=== PATIENT | female | born 1970 | race Caucasian/White ===

== ENCOUNTER → 2016-11-10 | Outpatient (CLI) | payer BC ==
--- NOTE | 2016-11-10 09:41 | MR ---
EXAMINATION TYPE: MR thoracic spine wo con DATE OF EXAM: 11/10/2016 9:35 AM COMPARISON: NONE HISTORY: Pain in tsp Multiplanar MultiSpin echo imaging of the thoracic spine was performed. Localizer T2 images demonstrates increased signal within the cervical spinal cord Disc spaces: No evidence for herniation protrusion or central stenosis. No significant degenerative c hanges appreciated. Spinal canal: No evidence for canal stenosis. No intrinsic or extrinsic lesion. Thoracic spinal cord: Thoracic spinal cord is of normal caliber and signal. Paraspinal soft tissues: No evidence for paraspinal mass. No destructive lesions seen. Vertebral segments: No evidence for fracture or bony lesion. IMPRESSION: 1. No significant abnormality of the thoracic spine. 2. Sagittal T2 localizer data set that demonstrates increased signal within the cervical spinal cord for which further evaluation is recommended.
== END | disposition home or self-care (01) ==
LOC: RADMRIMAIN 08:54
PROVIDERS: ATTEND Physical Medicine & Rehabilitation
DX: M54.6 Pain in thoracic spine (principal)
CPT/HCPCS: 72146

== ENCOUNTER → 2016-11-16 | Outpatient (CLI) | payer BC ==
--- NOTE | 2016-11-16 13:35 | US ---
EXAMINATION TYPE: US axilla extremity RT DATE OF EXAM: 11/16/2016 12:10 PM COMPARISON: NONE CLINICAL HISTORY: R22.2 Swelling, mass and lump trunk. 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 Scanning of area of concern in the right axilla shows 2 benign-appearing lymph nodes in the deeper ti ssue. No worrisome solid or cystic mass or abnormal fluid collection is seen on images saved. IMPRESSION: As above. Unremarkable study.
== END | disposition home or self-care (01) ==
LOC: RADUSWWP 11:57
PROVIDERS: ATTEND Internal Medicine
DX: R22.2 Localized swelling, mass and lump, trunk (principal)

== ENCOUNTER → 2016-11-19 | Outpatient (CLI) | payer BC ==
--- NOTE | 2016-11-19 13:59 | MR ---
EXAMINATION TYPE: MR cervical spine wo/w con DATE OF EXAM: 11/19/2016 9:17 AM COMPARISON: MR thoracic spine November 2016 HISTORY: Neck pain TECHNIQUE: Multiplanar, multisequence images of the cervical spine were acquired utilizing 15 mL intravenous Mul tiHance gadolinium contrast. Diffusion weighted imaging was performed. C2-C3: No evidence for degenerative disc disease. No disc bulge/herniation or protrusion. No Canal stenosis. Foramina are patent bilaterally. C3-C4: No evidence for degenerative disc disease. No disc bulge/herniation or protrusion. No Canal stenosis. Foramina are patent bilaterally. C4-C5: There is a right posterior paracentral disc herniation causing some contact the anterior cervi kirstie cord. No significant central stenosis or foraminal encroachment. C5-C6: Small posterior broad-based disc bulge causes minimal anterior mass effect on the thecal sac. Some left-sided foraminal encroachment is present, no significant central stenosis. C6-C7: Small central posterior disc herniation may contact the anterior cervical cord. There is some mild left-sided foraminal encroachment. C7-T1: No evidence for degenerative disc disease. No disc bulge/herniation or protrusion. No Canal stenosis. Foramina are patent bilaterally. Cervical segments are intact. There is normal alignment. Cervical spinal cord is of normal signal. Craniovertebral junction relationships are within normal limits. No significant abnormal enhancemen t. IMPRESSION: Multilevel disc herniation, disc degenerative changes as described, foraminal encroachment.
== END | disposition home or self-care (01) ==
LOC: RADMRIMAIN 08:30
PROVIDERS: ATTEND Internal Medicine
DX: M50.221 Other cervical disc displacement at C4-C5 level (principal); M47.812 Spondylosis without myelopathy or radiculopathy, cervical region
CPT/HCPCS: 72156; A9577

== ENCOUNTER → 2017-06-27 | Outpatient (CLI) | payer BC ==
--- NOTE | 2017-06-27 23:13 | MR ---
EXAMINATION TYPE: MR brain and iac wo/w con DATE OF EXAM: 06/27/2017 COMPARISON: NONE HISTORY: Tinnitus, left ear, Headache TECHNIQUE: Multiplanar, multisequence images of the brain and brainstem is performed without and with IV contras t, utilizing 6.5 mL intravenous Gadavist . Additional imaging of the internal auditory canal is perfo rmed. FINDINGS: Diffusion weighted images demonstrate no evidence of a recent infarct or other diffusion ab normality. There is no worrisome extra-axial fluid collection. The ventricular system and cisternal spaces are normal in size and appearance. The brain volume is age appropriate. There are few scatte red foci of T2 hyperintensity seen throughout the white matter bilaterally. Approximately 5-8 small l esions all measuring 3 mm or smaller in size are identified. They are nonspecific in appearance and d istribution. Midline structures demonstrate normal morphology. The craniocervical junction appears within normal limits. Post contrast images demonstrate no abnormal enhancement. The dural venous sinuses appear pa tent. The visualized sinuses are clear and the globes are intact. No suspicious fluid signal seen in mastoid air cells bilaterally. Vestibulocochlear complexes are sym metric and felt within normal limits. No suspicious enhancing cerebellopontine angle mass is identifi ed. IMPRESSION: Minimal nonspecific white matter changes otherwise unremarkable study. No significant fin ding is seen to account for patient's symptoms of left-sided tinnitus.
== END | disposition home or self-care (01) ==
LOC: RADMRIMAIN 21:44
PROVIDERS: ATTEND Internal Medicine
DX: R90.82 White matter disease, unspecified (principal)
CPT/HCPCS: 70553; A9581

== ENCOUNTER 2017-12-12 21:07 | Inpatient (IN) | payer BC ==
[2017-12-12] MEDS ORDERED: RX INFO: IV CONTRAST WAS GIVEN 1 EACH MISC MISCELLANE PRN (21:49)
[2017-12-12] MEDS ORDERED: MORPHINE SULFATE 4 MG/ML SYRINGE IV STA (21:49)
[2017-12-12] MEDS ORDERED: SODIUM CHLORIDE 0.9% 2,000 ML IV STA (21:49)
[2017-12-12] MEDS ORDERED: SODIUM CHLORIDE 0.9% 1,000 ML IV STA (21:49)
[2017-12-12] MEDS ORDERED: ONDANSETRON 4 MG/2 ML VIAL IVP STA (21:49)
[2017-12-12 22:14] LABS: Basophils # (A) 0.1 k/uL (0-0.2); Basophils % (A) 1 %; Eosinophils # (A) 0.1 k/uL (0-0.7); Eosinophils % (A) 1 %; HCT 40.3 % (34.0-46.0); HGB 13.2 gm/dL (11.4-16.0); Lymphocytes # (A) 2.3 k/uL (1.0-4.8); Lymphocytes % (A) 32 %; MCH 29.5 pg (25.0-35.0); MCHC 32.8 g/dL (31.0-37.0); MCV 89.9 fL (80.0-100.0); Mean Platelet Volume 8.7; Monocytes # (A) 0.4 k/uL (0-1.0); Monocytes % (A) 6 %; Neutrophils # (A) 4.3 k/uL (1.3-7.7); Neutrophils % (A) 59 %; Platelet Count 239 k/uL (150-450); RBC 4.48 m/uL (3.80-5.40); RDW 13.4 % (11.5-15.5); WBC 7.3 k/uL (3.8-10.6)
[2017-12-12 22:25] LABS: Anion Gap 14 mmol/L; Blood Urea Nitrogen 18 mg/dL (7-17); Carbon Dioxide 21 mmol/L (22-30); Chloride 108 mmol/L (98-107); Glucose 94 mg/dL (74-99); Potassium 3.6 mmol/L (3.5-5.1); Sodium 143 mmol/L (137-145)
[2017-12-12 22:26] LABS: ALT 32 U/L (9-52); AST 23 U/L (14-36); Albumin 4.8 g/dL (3.5-5.0); Alkaline Phosphatase 112 U/L (38-126); Amylase 282 U/L (30-110); Calcium 10.1 mg/dL (8.4-10.2); Lipase 1677 U/L (23-300); Total Bilirubin 0.4 mg/dL (0.2-1.3); Total Protein 7.5 g/dL (6.3-8.2)
[2017-12-12 22:35] LABS: Amorphous Sediment,Urine Moderate /hpf; Appearance,Urine Cloudy (Clear); Bilirubin,Urine Negative (Negative); Blood,Urine Negative (Negative); Color,Urine Yellow; Glucose,Urine (UA) Negative (Negative); Ketones,Urine Negative (Negative); Leukocyte Esterase,Urine Negative (Negative); Mucus,Urine Rare /hpf; Nitrite,Urine Negative (Negative); Protein,Urine Negative (Negative); Specific Gravity,Urine 1.016 (1.001-1.035); Squamous Epithelial Cell,Urine 1 /hpf (0-4); Urobilinogen,Urine <2.0 mg/dL (<2.0); WBC,Urine 3 /hpf (0-5)
--- NOTE | 2017-12-12 22:41 | CT ---
EXAMINATION TYPE: CT abdomen pelvis w con DATE OF EXAM: 12/12/2017 COMPARISON: NONE HISTORY: Right upper quadrant pain and nausea x 2 1/[address] DLP: 423.4 mGycm Automated exposure control for dose reduction was used. TECHNIQUE: Helical acquisition of images was performed from the lung bases through the pelvis. CONTRAST: Performed without Oral Contrast and with IV Contrast, patient injected with 100 mL of Omnipaque 300. FINDINGS: Lung bases are clear. There is no pleural effusion. Heart size is normal. There is no pericardial eff usion. Liver spleen pancreas appear normal. Bile ducts are not dilated. Gallbladder appears normal. There is no adrenal mass. Kidneys show satisfactory contrast opacification. There is no hydronephrosis. There is no retroperito shruthi adenopathy. There is no ascites. Bladder distends smoothly. There is no sign of a pelvic mass. U reters are not dilated. I see no intestinal wall thickening. There are no dilated loops. Appendix is not seen. There is no si gn of appendicitis. I see no bony destructive process. IMPRESSION: NEGATIVE CT SCAN OF THE ABDOMEN AND PELVIS. I DO NOT SEE A CAUSE FOR RIGHT UPPER QUADRANT PAIN.
--- NOTE | 2017-12-12 23:20 | ED ---
Abdominal Pain HPI - General Chief Complaint: Abdominal Pain Stated Complaint: abdominal pain Time Seen by Provider: 12/12/17 21:43 Source: patient Mode of arrival: ambulatory Limitations: no limitations - History of Present Illness Initial Comments: 7 years old female came from another doctor's office stating that she has a blockade was noticed on her x-ray complaining about excruciating abdominal pain pain is located in the right upper quadrant area and pain is 10 over 10 and also pain she bends forward. She denies any headaches no neck stiffness no chest pain no shortness of breath does have a severe abdominal pain is located in the right upper quadrant area and in the epigastric area denies any frequency urgency dysuria denies any history of gallstones denies any alcohol use denies any history of pancreatitis she is a status post history hysterectomy , no frequency urgency dysuria no symptoms of TIA or CVA - Related Data Home Medications Medication Instructions Recorded Confirmed Calcium Carbonate [Calcium] 600 mg PO BID 12/12/17 12/12/17 Cholecalciferol [Vitamin D3] 1,000 unit PO DAILY 12/12/17 12/12/17 Estradiol 0.05MG/24Hr Biwkptch 1 patch TRANSDERM SUWE 12/12/17 12/12/17 [Vivelle-Dot 0.05 MG] Ibuprofen [Motrin] 800 mg PO TID PRN 12/12/17 12/12/17 Lactobacillus Acidophilus 1 tab PO BID 12/12/17 12/12/17 [Acidophilus] Loratadine [Claritin] 10 mg PO DAILY 12/12/17 12/12/17 Mirabegron [Myrbetriq] 25 mg PO DAILY PRN 12/12/17 12/12/17 Montelukast [Singulair] 20 mg PO HS 12/12/17 12/12/17 Rizatriptan Benzoate [Maxalt] 5 mg PO DAILY PRN 12/12/17 12/12/17 Topiramate [Topamax] 100 mg PO BID 12/12/17 12/12/17 Zolpidem [Ambien] 10 mg PO HS 12/12/17 12/12/17 buPROPion HCL [Wellbutrin XL] 300 mg PO DAILY 12/12/17 12/12/17 clonazePAM [KlonoPIN] 1 mg PO TID PRN 12/12/17 12/12/17 metFORMIN HCL ER [Glucophage Xr] 500 mg PO BID 12/12/17 12/12/17 Allergies Allergy/AdvReac Type Severity Reaction Status Date / Time Cephalosporins Allergy Unknown Verified 12/12/17 21:23 escitalopram [From Lexapro] Allergy Unknown Verified 12/12/17 21:23 Penicillins Allergy Unknown Verified 12/12/17 21:23 solifenacin [From Vesicare] Allergy Unknown Verified 12/12/17 22:36 steroids Allergy Unknown Uncoded 12/12/17 21:23 Review of Systems ROS Statement: Those systems with pertinent positive or pertinent negative responses have been documented in the HPI. ROS Other: All systems not noted in ROS Statement are negative. Past Medical History Past Medical History: No Reported History History of Any Multi-Drug Resistant Organisms: None Reported Past Surgical History: No Surgical Hx Reported Past Psychological History: No Psychological Hx Reported Smoking Status: Never smoker Past Alcohol Use History: None Reported, Occasional Past Drug Use History: None Reported General Exam - General Exam Comments Initial Comments: General: The patient is awake and alert, in via distress pain is 10 over 10 Skin: Skin is warm and dry and no rashes or lesions are noted. Eye: Pupils are equal, round and reactive to light, extra-ocular movements are intact; there is normal conjunctiva bilaterally. Ears, nose, mouth and throat: There are moist mucous membranes and no oral lesions. Neck: The neck is supple, there is no tenderness no signs of meningitis Cardiovascular: There is a regular rate and rhythm. No murmur, rub or gallop is appreciated. Respiratory: To auscultation bilateral, no wheezing no rhonchi no distress respiratory felipe noticed Gastrointestinal: Very tender over the right upper quadrant area right paraumbilical area and epigastric area and slightly tender over left upper quadrant area positive bowel sounds no guarding no rebounds Back: There is no tenderness to palpation in the midline. There is no obvious deformity. Musculoskeletal: Normal ROM, no tenderness, There is no pedal edema. There is no calf tenderness or swelling. No cords were appreciated. Neurological: CN II-XII intact, Cranial nerves III through XII are intact. There are no obvious motor or sensory deficits. Coordination appears grossly intact. Speech is normal. Psychiatric: Cooperative, appropriate mood & affect, normal judgment. Limitations: no limitations Course Vital Signs 12/12/17 12/12/17 21:18 23:14 Temperature 97.5 F L Pulse Rate 87 98 Respiratory 18 18 Rate Blood Pressure 140/78 110/58 O2 Sat by Pulse 97 98 Oximetry She is reassessed at term 11:15 PM, CT abdomen is unremarkable amylase lipase are both elevated apart from that and CBC and compressive metabolic panel are unremarkable she be admitted to Dr. Angulo service, findings were discussed with the patient and the family didn't want agreeable to that plan Medical Decision Making - Lab Data Result diagrams: 12/12/17 22:04 12/12/17 22:04 Lab Results 12/12/17 12/12/17 12/12/17 Range/Units 22:04 22:04 22:04 WBC 7.3 (3.8-10.6) k/uL RBC 4.48 (3.80-5.40) m/uL Hgb 13.2 (11.4-16.0) gm/dL Hct 40.3 (34.0-46.0) % MCV 89.9 (80.0-100.0) fL MCH 29.5 (25.0-35.0) pg MCHC 32.8 (31.0-37.0) g/dL RDW 13.4 (11.5-15.5) % Plt Count 239 (150-450) k/uL Neutrophils % 59 % Lymphocytes % 32 % Monocytes % 6 % Eosinophils % 1 % Basophils % 1 % Neutrophils # 4.3 (1.3-7.7) k/uL Lymphocytes # 2.3 (1.0-4.8) k/uL Monocytes # 0.4 (0-1.0) k/uL Eosinophils # 0.1 (0-0.7) k/uL Basophils # 0.1 (0-0.2) k/uL Sodium 143 (137-145) mmol/L Potassium 3.6 (3.5-5.1) mmol/L Chloride 108 H (98-107) mmol/L Carbon Dioxide 21 L (22-30) mmol/L Anion Gap 14 mmol/L BUN 18 H (7-17) mg/dL Creatinine 0.80 (0.52-1.04) mg/dL Est GFR (CKD-EPI)AfAm >90 (>60 ml/min/1.73 sqM) Est GFR (CKD-EPI)NonAf 89 (>60 ml/min/1.73 sqM) Glucose 94 (74-99) mg/dL Plasma Lactic Acid Ronan 1.2 (0.7-2.0) mmol/L Calcium 10.1 (8.4-10.2) mg/dL Total Bilirubin 0.4 (0.2-1.3) mg/dL AST 23 (14-36) U/L ALT 32 (9-52) U/L Alkaline Phosphatase 112 (38-126) U/L Troponin I (0.000-0.034) ng/mL C-Reactive Protein 7.0 (<10.0) mg/L Total Protein 7.5 (6.3-8.2) g/dL Albumin 4.8 (3.5-5.0) g/dL Amylase 282 H (30-110) U/L Lipase 1677 H (23-300) U/L Urine Color Urine Appearance (Clear) Urine pH (5.0-8.0) Ur Specific [place] (1.001-1.035) Urine Protein (Negative) Urine Glucose (UA) (Negative) Urine Ketones (Negative) Urine Blood (Negative) Urine Nitrite (Negative) Urine Bilirubin (Negative) Urine Urobilinogen (<2.0) mg/dL Ur Leukocyte Esterase (Negative) Urine WBC (0-5) /hpf Ur Squamous Epith Cells (0-4) /hpf Amorphous Sediment (None) /hpf Urine Mucus (None) /hpf Urine HCG, Qual (Not Detectd) 12/12/17 12/12/17 12/12/17 Range/Units 22:04 22:15 22:15 WBC (3.8-10.6) k/uL RBC (3.80-5.40) m/uL Hgb (11.4-16.0) gm/dL Hct (34.0-46.0) % MCV (80.0-100.0) fL MCH (25.0-35.0) pg MCHC (31.0-37.0) g/dL RDW (11.5-15.5) % Plt Count (150-450) k/uL Neutrophils % % Lymphocytes % % Monocytes % % Eosinophils % % Basophils % % Neutrophils # (1.3-7.7) k/uL Lymphocytes # (1.0-4.8) k/uL Monocytes # (0-1.0) k/uL Eosinophils # (0-0.7) k/uL Basophils # (0-0.2) k/uL Sodium (137-145) mmol/L Potassium (3.5-5.1) mmol/L Chloride (98-107) mmol/L Carbon Dioxide (22-30) mmol/L Anion Gap mmol/L BUN (7-17) mg/dL Creatinine (0.52-1.04) mg/dL Est GFR (CKD-EPI)AfAm (>60 ml/min/1.73 sqM) Est GFR (CKD-EPI)NonAf (>60 ml/min/1.73 sqM) Glucose (74-99) mg/dL Plasma Lactic Acid Ronan (0.7-2.0) mmol/L Calcium (8.4-10.2) mg/dL Total Bilirubin (0.2-1.3) mg/dL AST (14-36) U/L ALT (9-52) U/L Alkaline Phosphatase (38-126) U/L Troponin I <0.012 (0.000-0.034) ng/mL C-Reactive Protein (<10.0) mg/L Total Protein (6.3-8.2) g/dL Albumin (3.5-5.0) g/dL Amylase (30-110) U/L Lipase (23-300) U/L Urine Color Yellow Urine Appearance Cloudy H (Clear) Urine pH 8.0 (5.0-8.0) Ur Specific [place] 1.016 (1.001-1.035) Urine Protein Negative (Negative) Urine Glucose (UA) Negative (Negative) Urine Ketones Negative (Negative) Urine Blood Negative (Negative) Urine Nitrite Negative (Negative) Urine Bilirubin Negative (Negative) Urine Urobilinogen <2.0 (<2.0) mg/dL Ur Leukocyte Esterase Negative (Negative) Urine WBC 3 (0-5) /hpf Ur Squamous Epith Cells 1 (0-4) /hpf Amorphous Sediment Moderate H (None) /hpf Urine Mucus Rare H (None) /hpf Urine HCG, Qual Not Detected (Not Detectd) Disposition Clinical Impression: Pancreatitis, Abdominal pain Disposition: ADMITTED IP TO THIS [facility] Condition: Good Referrals: Domenico Campa MD [Primary Care Provider] - 1-2 days
[2017-12-12] MEDS ORDERED: ONDANSETRON 4 MG/2 ML VIAL IVP PRN (23:23)
[2017-12-12] MEDS ORDERED: NALOXONE 0.4 MG/ML 1 ML VIAL IV PRN (23:23)
[2017-12-12] MEDS ORDERED: IBUPROFEN 800 MG TAB PO PRN (23:29)
[2017-12-12] MEDS ORDERED: OXYBUTYNIN XL 5 MG TAB.ER.24 PO PRN (23:29)
[2017-12-12] MEDS ORDERED: clonazePAM 1 MG TAB PO PRN (23:29)
[2017-12-13] MEDS: MORPHINE SULFATE 4 MG/ML SYRINGE IV PRN ×5 (01:17→19:40)
[2017-12-13 06:11] LABS: Basophils % (A) 1 %; Eosinophils # (A) 0.1 k/uL (0-0.7); Eosinophils % (A) 2 %; HCT 39.5 % (34.0-46.0); HGB 12.9 gm/dL (11.4-16.0); Lymphocytes # (A) 2.2 k/uL (1.0-4.8); Lymphocytes % (A) 39 %; MCHC 32.6 g/dL (31.0-37.0); MCV 92.1 fL (80.0-100.0); Mean Platelet Volume 8.5; Monocytes # (A) 0.4 k/uL (0-1.0); Monocytes % (A) 7 %; Neutrophils # (A) 2.8 k/uL (1.3-7.7); Neutrophils % (A) 50 %; Platelet Count 208 k/uL (150-450); RBC 4.29 m/uL (3.80-5.40); RDW 13.1 % (11.5-15.5); WBC 5.7 k/uL (3.8-10.6)
[2017-12-13 06:23] LABS: ALT 31 U/L (9-52); AST 19 U/L (14-36); Albumin 3.9 g/dL (3.5-5.0); Alkaline Phosphatase 89 U/L (38-126); Amylase 172 U/L (30-110); Anion Gap 10 mmol/L; Blood Urea Nitrogen 12 mg/dL (7-17); Calcium 8.5 mg/dL (8.4-10.2); Carbon Dioxide 25 mmol/L (22-30); Chloride 111 mmol/L (98-107); Glucose 89 mg/dL (74-99); Lipase 786 U/L (23-300); Sodium 146 mmol/L (137-145); Total Bilirubin 0.4 mg/dL (0.2-1.3); Total Protein 6.2 g/dL (6.3-8.2)
[2017-12-13] MEDS ORDERED: CALCIUM CARBONATE 500 MG CHEWABLE PO SCH (09:00)
[2017-12-13] MEDS ORDERED: NON-FORMULARY DRUG (Metformin Hcl Er 500 MG) PO SCH (09:00)
[2017-12-13] MEDS ORDERED: CHOLECALCIFEROL 1,000 UNIT TAB PO SCH (09:00)
[2017-12-13] MEDS: buPROPion XL 300 MG TAB.ER.24H PO SCH (10:13)
[2017-12-13] MEDS: TOPIRAMATE 100 MG TAB PO SCH ×2 (10:14→20:39)
[2017-12-13] MEDS: LORATADINE 10 MG TAB PO SCH (10:14)
[2017-12-13] MEDS: LACTOBACILLUS ACIDOPH & BULGAR 1 EACH PACKET PO SCH (10:15)
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
[2017-12-13] MEDS: ENOXAPARIN 40 MG/0.4 ML SYRINGE SQ SCH (17:37)
[2017-12-13] MEDS: PANTOPRAZOLE 40 MG TABLET PO SCH (17:37)
[2017-12-13] MEDS: MONTELUKAST 10 MG TAB PO SCH (20:38)
[2017-12-13] MEDS: ZOLPIDEM 10 MG TAB PO SCH (20:38)
--- NOTE | 2017-12-13 20:40 | P.GSCN ---
History of Present Illness Consult date: 12/13/17 Reason for Consult: Acute pancreatitis History of present illness: Patient hospitalized with a 2 to three-week history of increasing abdominal pain and nausea. Starting yesterday the pain became much more severe. Pain is in the epigastric region and right upper quadrant. Appetite is diminished. Some loose stools. No change in the color of her skin urine or stool. No fevers. She states this all began almost simultaneous to her sinus infection. She was treated with Bactrim at that time. Denies alcohol use. No prior history of pancreatitis. No history of ulcers. No history of known gallstones. Pain is persisting this evening. CAT scan was performed which showed some very subtle inflammatory changes around the mid body of the pancreas. No gallbladder disease is seen. Her amylase and lipase are elevated. They are improved today. Her liver enzymes were not elevated. 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 History of Any Multi-Drug Resistant Organisms: None Reported Past Surgical History: Ear Surgery, Hysterectomy Additional Past Surgical History / Comment(s): Several abdominal surgeries d/t Von Advance Bran, stapendectomy L ear Past Anesthesia/Blood Transfusion Reactions: No Reported Reaction Additional Past Anesthesia/Blood Transfusion Reaction / Comm: Pt received blood in past without reaction. Smoking Status: Never smoker - Past Family History Father Family Medical History: Cancer Additional Family Medical History / Comment(s): Father had colon cancer. Mother Family Medical History: Coronary Artery Disease (CAD), Diabetes Mellitus Additional Family Medical History / Comment(s): Mother at the age of 68yrs. Medications and Allergies Home Medications Medication Instructions Recorded Confirmed Type Calcium Carbonate [Calcium] 600 mg PO BID 03/13/18 03/13/18 History Cholecalciferol [Vitamin D3] 1,000 unit PO DAILY 12/12/17 12/12/17 History Estradiol 0.05MG/24Hr Biwkptch 1 patch TRANSDERM SUWE 12/12/17 12/12/17 History [Vivelle-Dot 0.05 MG] Ibuprofen [Motrin] 800 mg PO TID PRN 12/12/17 12/12/17 History Lactobacillus Acidophilus 1 tab PO BID 12/12/17 12/12/17 History [Acidophilus] Loratadine [Claritin] 10 mg PO DAILY 12/12/17 12/12/17 History Mirabegron [Myrbetriq] 25 mg PO DAILY PRN 12/12/17 12/12/17 History Montelukast [Singulair] 20 mg PO HS 12/12/17 12/12/17 History Rizatriptan Benzoate [Maxalt] 5 mg PO DAILY PRN 12/12/17 12/12/17 History Topiramate [Topamax] 100 mg PO BID 12/12/17 12/12/17 History Zolpidem [Ambien] 10 mg PO HS 12/12/17 12/12/17 History buPROPion HCL [Wellbutrin XL] 300 mg PO DAILY 12/12/17 12/12/17 History clonazePAM [KlonoPIN] 1 mg PO TID PRN 12/12/17 12/12/17 History metFORMIN HCL ER [Glucophage Xr] 500 mg PO BID 12/12/17 12/12/17 History Allergies Allergy/AdvReac Type Severity Reaction Status Date / Time Cephalosporins Allergy Unknown Verified 12/12/17 21:23 escitalopram [From Lexapro] Allergy Unknown Verified 12/12/17 21:23 Penicillins Allergy Unknown Verified 12/12/17 21:23 solifenacin [From Vesicare] Allergy Unknown Verified 12/12/17 22:36 steroids Allergy Unknown Uncoded 12/12/17 21:23 Surgical - Exam Vital Signs Temp Pulse Resp BP Pulse Ox 97.5 F L 87 18 140/78 97 12/12/17 21:18 12/12/17 21:18 12/12/17 21:18 12/12/17 21:18 12/12/17 21:18 Physical exam: General: Well-developed, well-nourished HEENT: Normocephalic, sclerae nonicteric Abdomen: Epigastric tenderness, nondistended Extremities: No edema Neuro: Alert and oriented Results - Labs 12/13/17 05:51 12/13/17 05:51 Abnormal Lab Results - Last 24 Hours (Table) 12/12/17 12/12/17 12/13/17 Range/Units 22:04 22:15 05:51 Sodium 146 H (137-145) mmol/L Chloride 108 H 111 H (98-107) mmol/L Carbon Dioxide 21 L (22-30) mmol/L BUN 18 H (7-17) mg/dL Total Protein 6.2 L (6.3-8.2) g/dL Amylase 282 H 172 H (30-110) U/L Lipase 1677 H 786 H (23-300) U/L Urine Appearance Cloudy H (Clear) Amorphous Sediment Moderate H (None) /hpf Urine Mucus Rare H (None) /hpf Microbiology - Last 24 Hours (Table) 12/12/17 22:15 Urine Culture - Preliminary Urine,Clean Catch Diabetes panel 12/12/17 12/13/17 Range/Units 22:04 05:51 Sodium 143 146 H (137-145) mmol/L Potassium 3.6 4.0 (3.5-5.1) mmol/L Chloride 108 H 111 H (98-107) mmol/L Carbon Dioxide 21 L 25 (22-30) mmol/L BUN 18 H 12 (7-17) mg/dL Creatinine 0.80 0.82 (0.52-1.04) mg/dL Glucose 94 89 (74-99) mg/dL Calcium 10.1 8.5 (8.4-10.2) mg/dL AST 23 19 (14-36) U/L ALT 32 31 (9-52) U/L Alkaline Phosphatase 112 89 (38-126) U/L Total Protein 7.5 6.2 L (6.3-8.2) g/dL Albumin 4.8 3.9 (3.5-5.0) g/dL Calcium panel 12/12/17 12/13/17 Range/Units 22:04 05:51 Calcium 10.1 8.5 (8.4-10.2) mg/dL Albumin 4.8 3.9 (3.5-5.0) g/dL Pituitary panel 12/12/17 12/13/17 Range/Units 22:04 05:51 Sodium 143 146 H (137-145) mmol/L Potassium 3.6 4.0 (3.5-5.1) mmol/L Chloride 108 H 111 H (98-107) mmol/L Carbon Dioxide 21 L 25 (22-30) mmol/L BUN 18 H 12 (7-17) mg/dL Creatinine 0.80 0.82 (0.52-1.04) mg/dL Glucose 94 89 (74-99) mg/dL Calcium 10.1 8.5 (8.4-10.2) mg/dL Adrenal panel 12/12/17 12/13/17 Range/Units 22:04 05:51 Sodium 143 146 H (137-145) mmol/L Potassium 3.6 4.0 (3.5-5.1) mmol/L Chloride 108 H 111 H (98-107) mmol/L Carbon Dioxide 21 L 25 (22-30) mmol/L BUN 18 H 12 (7-17) mg/dL Creatinine 0.80 0.82 (0.52-1.04) mg/dL Glucose 94 89 (74-99) mg/dL Calcium 10.1 8.5 (8.4-10.2) mg/dL Total Bilirubin 0.4 0.4 (0.2-1.3) mg/dL AST 23 19 (14-36) U/L ALT 32 31 (9-52) U/L Alkaline Phosphatase 112 89 (38-126) U/L Total Protein 7.5 6.2 L (6.3-8.2) g/dL Albumin 4.8 3.9 (3.5-5.0) g/dL Assessment and Plan (1) Pancreatitis Narrative/Plan: Patient with acute pancreatitis. Suspect Bactrim is the likely source. We'll check abdominal ultrasound. Add Toradol for pain control. Continue clear liquids only. Current Visit: Yes Status: Acute Code(s): K85.90 - ACUTE PANCREATITIS WITHOUT NECROSIS OR INFECTION, UNSP SNOMED Code(s): 76410058
[2017-12-13] MEDS: LACTATED RINGERS 1,000 ML IV SCH (20:46)
[2017-12-13] MEDS: KETOROLAC 30 MG/ML 1 ML VIAL IVP SCH (23:07)
[2017-12-13] MEDS ORDERED: ESTRADIOL 0.05 MG/24 HR TRANSDERM SCH (23:29)
[2017-12-14] MEDS: LACTATED RINGERS 1,000 ML IV SCH ×4 (01:08→23:33)
[2017-12-14] MEDS: LACTOBACILLUS ACIDOPH & BULGAR 1 EACH PACKET PO SCH ×3 (01:08→19:56)
[2017-12-14] MEDS: KETOROLAC 30 MG/ML 1 ML VIAL IVP SCH ×4 (04:40→23:32)
[2017-12-14] MEDS: MORPHINE SULFATE 4 MG/ML SYRINGE IV PRN ×3 (07:14→13:28)
[2017-12-14 07:44] LABS: Amylase 86 U/L (30-110); Lipase 377 U/L (23-300)
--- NOTE | 2017-12-14 08:56 | US ---
EXAMINATION TYPE: US abdomen limited DATE OF EXAM: 12/14/2017 COMPARISON: None CLINICAL HISTORY: Abdominal pain, evaluate gallbladder. Pain, NPO, no surgeries EXAM MEASUREMENTS: Liver Length: 13.9 cm Gallbladder Wall: 0.2 cm CBD: 0.3 cm CHD: 0.3 cm Right Kidney: 10.0 x 4.9 x 4.6 cm Pancreas: Appears echogenic Liver: wnl Gallbladder: wnl Evidence for sonographic Angel's sign: neg CBD: wnl CHD: wnl Right Kidney: wnl IMPRESSION: 1. Normal right upper quadrant ultrasound.
[2017-12-14] MEDS: PANTOPRAZOLE 40 MG TABLET PO SCH (10:19)
[2017-12-14] MEDS: buPROPion XL 300 MG TAB.ER.24H PO SCH (10:19)
[2017-12-14] MEDS: TOPIRAMATE 100 MG TAB PO SCH ×2 (10:20→19:56)
[2017-12-14] MEDS: LORATADINE 10 MG TAB PO SCH (10:20)
[2017-12-14] MEDS: ENOXAPARIN 40 MG/0.4 ML SYRINGE SQ SCH (10:52)
[2017-12-14] MEDS: SUMAtriptan SUCCINATE 50 MG TAB PO PRN (10:53)
[2017-12-14 11:06] VITALS: BMI 22.6
--- NOTE | 2017-12-14 12:31 | P.PN ---
<Sheryl Westbrook - Last Filed: 12/14/17 12:22> Subjective Progress Note Date: 12/14/17 47 show female seen and examined this morning. Patient reports having mid epigastric pain. Patient reports a nausea sensation no emesis. Patient reportedly has short-term and long-term memory loss. Patient states that she just recently was treated for acute bronchitis started on a course of Bactrim for 5 days last dose was November 27. She stated after stopping the back Bactrim started getting mid epigastric abdominal discomfort. In the emergency room a computed tomography scan of the abdomen pelvis was negative showed no acute process. Additionally patient had undergone an ultrasound of the abdomen was read as normal patient's initial lipase was elevated 1677. It is now down to 377. Patient denies any use of alcohol. No prior history of pancreatitis. Gives no history of ulcers. Patient states she's had decrease in appetite. Patient stated the pain had been ongoing for the last several weeks but over the last 48 hours has increase in severe day. Patient points to the epigastric area states it radiates to the right upper quadrant. Objective - Vital Signs Vital signs: Vital Signs Temp 97.6 F 12/14/17 07:00 Pulse 87 12/14/17 07:00 Resp 18 12/13/17 20:00 BP 119/76 12/14/17 07:00 Pulse Ox 98 12/14/17 07:00 Intake & Output 12/13/17 12/14/17 12/14/17 18:59 06:59 18:59 Intake Total 800 1200 Balance 800 1200 Weight 61.689 kg Intake: IV 800 1200 Sodium Chloride 0.9% 1, 800 1200 000 ml @ 100 mls/hr IV . Q10H STA Rx#:[id number] Other: Voiding Method Toilet Toilet # Voids 1 2 2 - Exam Physical exam Abdomen patient points to the mid epigastric areas to the reference point where the discomfort is. States it radiates to the right upper quadrant soft flat no surgical scars noted bowel tones present no nausea no vomiting no facial grimacing with palpitation to the abdominal wall nondistended mild tenderness noted - Labs CBC & Chem 7: 12/13/17 05:51 12/13/17 05:51 Labs: Abnormal Lab Results - Last 24 Hours (Table) 12/14/17 Range/Units 06:21 Lipase 377 H (23-300) U/L Microbiology - Last 24 Hours (Table) 12/12/17 22:15 Urine Culture - Preliminary Urine,Clean Catch Assessment and Plan Assessment: Impression History of Von Willebrand's disorder A recent treatment with Bactrim for bronchitis Present on admission elevated lipase amylase due to acute pancreatitis suspect viral History of esophageal reflux disease Plan Per GIs recommendations scheduled this afternoon for an EGD follow up on results for further surgical recommendations pending IV fluid for hydration Pain control diet IV fluid for hydration DVT and GI prophylaxi Further recommendations pending will follow with you The above impression and plan of care have been discussed and directed by signing physician. Sheryl Westbrook nurse practitioner acting as scribe for signing physician. <Sky Gomez - Last Filed: 12/14/17 16:11> Objective - Vital Signs Vital signs: Vital Signs Temp 97.9 F 12/14/17 15:00 Pulse 90 12/14/17 15:00 Resp 16 12/14/17 15:00 BP 105/69 12/14/17 15:00 Pulse Ox 100 12/14/17 15:00 Intake & Output 12/13/17 12/14/17 12/14/17 18:59 06:59 18:59 Intake Total 800 1200 Balance 800 1200 Weight 61.689 kg Intake: IV 800 1200 Sodium Chloride 0.9% 1, 800 1200 000 ml @ 100 mls/hr IV . Q10H STA Rx#:[id number] Other: Voiding Method Toilet Toilet # Voids 1 2 3 - Labs CBC & Chem 7: 12/13/17 05:51 12/13/17 05:51 Labs: Abnormal Lab Results - Last 24 Hours (Table) 12/14/17 Range/Units 06:21 Lipase 377 H (23-300) U/L Microbiology - Last 24 Hours (Table) 12/12/17 22:15 Urine Culture - Final Urine,Clean Catch Assessment and Plan Assessment: As above. Patient's ultrasound was negative for gallstones. Still believe Bactrim to be the etiology for her pancreatitis. Upper endoscopy scheduled tomorrow by GI. No surgical intervention planned. We'll sign off at this point. Please contact if needed. (1) Pancreatitis Current Visit: Yes Status: Acute Code(s): K85.90 - ACUTE PANCREATITIS WITHOUT NECROSIS OR INFECTION, UNSP SNOMED Code(s): 29890327
--- NOTE | 2017-12-14 13:29 | P.CONS ---
History of Present Illness - Reason for Consult Consult date: 12/14/17 Pancreatitis Requesting physician: Austin Pearce - History of Present Illness 47 y/o female PMH Von Willebrand, multiple abdominal surgeries, electrocution with memory impairment, and diabetes mellitus. Admitted with acute abdominal pain midepigastric bilateral upper abdomen since November 27. She was placed on Bactrim 1 week prior for 5 days for bronchitis type symptoms. Pain is sharp exacerbated with meals without emesis. No fever, chills or bleeding. Elevated pancreatic enzymes on admission; Lipase 1677 presently 377. Amylase 282 presently 86. Normal Lfts. CT and US reported as normal. No history of pancreatitis or ETOH abuse. no excessive Motrin or ASA products takes occasional Motrin as needed for migraines. No new medications; shes had Bactrim in the past without problems. Review of Systems Constitutional: Denies fever, chills, sweats, weight gain, or loss. HEENT: History of migraines, denies blurred vision or loss, earaches, drainage , tinnitus, oral mucosal lesions, dysphagia, or odynophagia. CARDIAC: Negative for chest pain, arrhythmias, or palpitation. RESPIRATORY: COPD. Asthma. Chronic severe persistent bronchial asthma, Negative for shortness of breath, hemoptysis, cough, or sputum production. GI: See HPI for pertinent findings. : Negative for hematuria, urgency, frequency, polyuria, or dysuria. GYNc: Denies possibility of . Negative vaginal discharge. MUSCULOSKELETAL: Degenerative disc disease. NEUROLOGIC: History of TIA. Hematology: Von Willebrand. . ENDOCRINE: Diabestes. Negative for thyroid problems. SKIN: Negative for rash or itching. 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 History of Any Multi-Drug Resistant Organisms: None Reported Past Surgical History: Ear Surgery, Hysterectomy Additional Past Surgical History / Comment(s): Several abdominal surgeries d/t Von Slater Bran, stapendectomy L ear Past Anesthesia/Blood Transfusion Reactions: No Reported Reaction Additional Past Anesthesia/Blood Transfusion Reaction / Comm: Pt received blood in past without reaction. Smoking Status: Never smoker - Past Family History Father Family Medical History: Cancer Additional Family Medical History / Comment(s): Father had colon cancer. Mother Family Medical History: Coronary Artery Disease (CAD), Diabetes Mellitus Additional Family Medical History / Comment(s): Mother at the age of 68yrs. Medications and Allergies Home Medications Medication Instructions Recorded Confirmed Type Calcium Carbonate [Calcium] 600 mg PO BID 12/12/17 12/12/17 History Cholecalciferol [Vitamin D3] 1,000 unit PO DAILY 12/12/17 12/12/17 History Estradiol 0.05MG/24Hr Biwkptch 1 patch TRANSDERM SUWE 12/12/17 12/12/17 History [Vivelle-Dot 0.05 MG] Ibuprofen [Motrin] 800 mg PO TID PRN 12/12/17 12/12/17 History Lactobacillus Acidophilus 1 tab PO BID 12/12/17 12/12/17 History [Acidophilus] Loratadine [Claritin] 10 mg PO DAILY 12/12/17 12/12/17 History Mirabegron [Myrbetriq] 25 mg PO DAILY PRN 12/12/17 12/12/17 History Montelukast [Singulair] 20 mg PO HS 12/12/17 12/12/17 History Rizatriptan Benzoate [Maxalt] 5 mg PO DAILY PRN 12/12/17 12/12/17 History Topiramate [Topamax] 100 mg PO BID 12/12/17 12/12/17 History Zolpidem [Ambien] 10 mg PO HS 12/12/17 12/12/17 History buPROPion HCL [Wellbutrin XL] 300 mg PO DAILY 12/12/17 12/12/17 History clonazePAM [KlonoPIN] 1 mg PO TID PRN 12/12/17 12/12/17 History metFORMIN HCL ER [Glucophage Xr] 500 mg PO BID 12/12/17 12/12/17 History Allergies Allergy/AdvReac Type Severity Reaction Status Date / Time Cephalosporins Allergy Unknown Verified 12/12/17 21:23 escitalopram [From Lexapro] Allergy Unknown Verified 12/12/17 21:23 Penicillins Allergy Unknown Verified 12/12/17 21:23 solifenacin [From Vesicare] Allergy Unknown Verified 12/12/17 22:36 steroids Allergy Unknown Uncoded 12/12/17 21:23 Physical Exam Vitals: Vital Signs Temp Pulse Resp BP Pulse Ox 12/14/17 07:00 97.6 F 87 119/76 98 12/14/17 02:41 97.2 F L 72 100/55 98 12/13/17 20:00 97.6 F 73 18 103/69 100 12/13/17 15:00 97.5 F L 68 16 146/88 100 12/13/17 14:16 98.1 F 67 18 101/53 100 Intake and Output 12/13/17 12/14/17 12/14/17 22:59 06:59 14:59 Intake Total 1200 Balance 1200 Intake: IV 1200 Sodium Chloride 0.9% 1, 1200 000 ml @ 100 mls/hr IV . Q10H STA Rx#:[id number] Other: Voiding Method Toilet Toilet # Voids 0 2 2 Weight 61.689 kg - Constitutional General appearance: average body habitus - EENT Eyes: normal appearance Ears: bilateral: normal - Neck Neck: normal ROM - Respiratory Respiratory: bilateral: CTA - Cardiovascular Rhythm: regular Heart sounds: normal: S1, S2 - Gastrointestinal midepigatric sub right costal tenderness No R/G General gastrointestinal: soft - Integumentary Integumentary: normal turgor - Neurologic Neurologic: CNII-XII intact - Psychiatric Psychiatric: A&O x's 3 Results CBC & Chem 7: 12/15/17 06:56 12/15/17 06:56 Labs: Abnormal Lab Results - Last 24 Hours (Table) 12/14/17 Range/Units 06:21 Lipase 377 H (23-300) U/L Microbiology - Last 24 Hours (Table) 12/12/17 22:15 Urine Culture - Preliminary Urine,Clean Catch CT scan - abdomen: report reviewed (Dr. Phillips) US - abdomen: report reviewed (Dr. Phillips) Assessment and Plan (1) Pancreatitis Narrative/Plan: Etiology unclear possible peptic ulcer disease Current Visit: Yes Status: Acute Code(s): K85.90 - ACUTE PANCREATITIS WITHOUT NECROSIS OR INFECTION, UNSP SNOMED Code(s): 78397162 (2) Von Willebrand disease Current Visit: Yes Status: Acute Code(s): D68.0 - VON WILLEBRAND'S DISEASE SNOMED Code(s): 444121051 (3) Memory deficit Current Visit: Yes Status: Acute Code(s): R41.3 - OTHER AMNESIA SNOMED Code(s): 149374575 Plan: 1. EGD evaluation. 2. Protonix 40 mg daily. Hold Lovenox dosage on 12/15/17. 3. Clear liquids as tolerated. NPO after midnight. 4. Will check triglycerides. If abdominal pain worsens consideration for angiogram secondary to reported history of abdominal blood clots. The medical review specialist has discussed the risks, benefits and alternative therapies for the above-mentioned procedure and for both sedation/analgesia as well as necessary blood product administration, if indicated, as they pertain to this patient. The patient has indicated understanding and acceptance of the risks and procedures discussed. Thank you for this kind referral and the opportunity to participate in the care of your patient. This consultation was discussed with Dr. Phillips. The impression and plan of care have been directed as dictated.
[2017-12-14] MEDS ORDERED: DIAZEPAM 5 MG/ML 2 ML INJ IVP STA (16:29)
[2017-12-14] MEDS ORDERED: DIAZEPAM 5 MG/ML (10 ML MDV) IVP STA (17:20)
[2017-12-14] MEDS: MONTELUKAST 10 MG TAB PO SCH (19:56)
[2017-12-14] MEDS: ZOLPIDEM 10 MG TAB PO SCH (21:12)
--- NOTE | 2017-12-14 22:42 | PN ---
PROGRESS NOTE DATE OF SERVICE: 12/14/2017 PRESENTING COMPLAINT: Pancreatitis. INTERVAL HISTORY: This patient presented with acute pancreatitis, supposedly viral. I saw this patient in late afternoon. The patient is still having abdominal pain, though pancreatic numbers have come down. Patient is also having a bit of a migraine headache. Patient was seen by GI and General Surgery, contemplating EGD. No nausea or vomiting. REVIEW OF SYSTEMS: Done for constitutional, cardiovascular, GI, pulmonary; relevant findings as above. CURRENT MEDICATIONS: Reviewed. PHYSICAL EXAMINATION: Temperature 97.9, pulse 90, respiration 16, blood pressure 105/69, pulse ox 100% on room air. GENERAL APPEARANCE: Lying in bed, tired-appearing. EYES: Pupils equal. Conjunctivae normal. HEENT: External appearance of nose and ears normal. Oral cavity dry. NECK: JVD not raised. Mass not palpable. RESPIRATORY: Effort normal. Lungs are clear. CARDIOVASCULAR: First and second sounds normal. No edema. ABDOMEN: Some epigastric tenderness. No guarding or rigidity. Liver and spleen no palpable. PSYCHIATRIC: Alert and oriented x3. Mood and affect anxious-appearing. INVESTIGATIONS: Amylase 86, lipase 377. ASSESSMENT: 1. Acute pancreatitis; could be viral with improvement. Patient's abdomen is rather soft. Still having some pain. Patient may have underlying peptic ulcer disease/gastritis. 2. Gastroesophageal reflux disease. 3. Von Willebrand's disorder. 4. Lumbar arthritis, chronic. PLAN: GI is planning to do an EGD. Diet according to them. Patient will be given a small dose of Valium for her headache, as I cannot give her NSAIDs. IV fluids are to continue. Patient clinically does look much better than yesterday. Patient definitely has an anxiety component, which because of her medical conditions is somewhat playing up. MMODL / IJN: [id number] /
[2017-12-15] MEDS: SUMAtriptan SUCCINATE 50 MG TAB PO PRN (04:41)
[2017-12-15] MEDS: KETOROLAC 30 MG/ML 1 ML VIAL IVP SCH (04:44)
[2017-12-15 07:32] LABS: Basophils % (A) 0 %; Eosinophils # (A) 0.1 k/uL (0-0.7); Eosinophils % (A) 2 %; HCT 37.9 % (34.0-46.0); HGB 12.4 gm/dL (11.4-16.0); Lymphocytes % (A) 22 %; MCH 29.5 pg (25.0-35.0); MCHC 32.7 g/dL (31.0-37.0); MCV 90.4 fL (80.0-100.0); Mean Platelet Volume 8.3; Monocytes # (A) 0.2 k/uL (0-1.0); Monocytes % (A) 4 %; Neutrophils # (A) 3.3 k/uL (1.3-7.7); Neutrophils % (A) 70 %; Platelet Count 199 k/uL (150-450); RBC 4.19 m/uL (3.80-5.40); RDW 13.2 % (11.5-15.5); WBC 4.7 k/uL (3.8-10.6)
[2017-12-15 07:51] LABS: INR 1.1 (<1.2); Prothrombin Time 10.4 sec (9.0-12.0)
[2017-12-15] MEDS: LACTATED RINGERS 1,000 ML IV SCH ×3 (07:54→20:28)
[2017-12-15 07:57] LABS: ALT 24 U/L (9-52); AST 17 U/L (14-36); Albumin 3.5 g/dL (3.5-5.0); Alkaline Phosphatase 79 U/L (38-126); Amylase 73 U/L (30-110); Anion Gap 9 mmol/L; Blood Urea Nitrogen 4 mg/dL (7-17); Calcium 9.1 mg/dL (8.4-10.2); Carbon Dioxide 22 mmol/L (22-30); Chloride 111 mmol/L (98-107); Glucose 92 mg/dL (74-99); Lipase 229 U/L (23-300); Potassium 3.7 mmol/L (3.5-5.1); Sodium 142 mmol/L (137-145); Total Bilirubin 0.3 mg/dL (0.2-1.3); Total Protein 5.8 g/dL (6.3-8.2); Triglycerides 63 mg/dL (<150)
[2017-12-15] MEDS ORDERED: IV FLUID CONTINUATION 1,000 ML IV ONE (08:17)
[2017-12-15] MEDS ORDERED: PROPOFOL 10 MG/ML 20 ML VIAL IV ONE (08:19)
[2017-12-15] MEDS ORDERED: LIDOCAINE 1% INJ 10MG/ML (20 ML MDV) ONE (08:19)
--- NOTE | 2017-12-15 08:29 | P.PCN ---
Date of Procedure: 12/15/17 Procedure(s) Performed: BRIEF HISTORY: Patient is a 47-year-old, pleasant, female, scheduled for an upper endoscopy as a part of evaluation of epigastric and right upper quadrant abdominal pain for the last 1 month duration. She was admitted to hospital 2 days ago and was noted to have elevated amylase and lipase which since has normalized, however she continues to have persistent abdominal pain. Positive peptic ulcer disease being considered PROCEDURE PERFORMED: Esophagogastroduodenoscopy with biopsy. PREOPERATIVE DIAGNOSIS: Epigastric and right upper quadrant abdominal pain of 1 month duration and recent episode of acute pancreatitis. IV sedation per anesthesia. PROCEDURE: After informed consent was obtained, the patient was brought into the endoscopy unit. IV sedation was administered by Anesthesia under continuous monitoring. Initially the Olympus GIF-140 video endoscope was inserted into the mouth. Esophagus intubated without any difficulty. It was gradually advanced into the stomach and duodenum and carefully examined. The bulb and the second part of the duodenum appeared normal. Biopsies were done from the duodenum to rule out celiac disease. The scope at this time was withdrawn to the stomach, adequately insufflated with air, and upon careful examination, mucosa of the antrum, had mild gastritis and patchy areas of erythema in the prepyloric area and biopsies were done from this area. There were no ulcerations identified. The body, cardia and the fundus appeared normal. The scope was then withdrawn into the esophagus. Small sliding Hiatal hernia noted. The GE junction was located at 39 cm from the incisors. The esophagus appeared normal. There were no erosions or ulcerations seen and the patient tolerated the procedure well. IMPRESSION: 1. Small sliding Hiatal hernia. 2. Minimal antral gastritis. RECOMMENDATIONS: The findings of this examination were discussed with the patient. She was advised to follow with the biopsy results. Her diet will be advanced to low-fat diet. Continue with Protonix 40 mg daily..
[2017-12-15] MEDS ORDERED: PANTOPRAZOLE 40 MG/10 ML VIAL IVP SCH (09:00)
[2017-12-15] MEDS ORDERED: RX INFO: IV CONTRAST WAS GIVEN 1 EACH MISC MISCELLANE PRN (10:47)
--- NOTE | 2017-12-15 10:57 | P.PN ---
Progress Note - Text Progress Note Date: 12/15/17 Status post EGD with no evidence of peptic ulcer disease. Patient is still reporting moderate to severe abdominal pain. Dr. Pearce requested CT angiogram secondary to persistent abdominal pain and reported history of blood clots and abdominal surgeries. CT angiogram abdomen pelvis ordered as well as lactic acid. We'll have general surgery reevaluate patient today; plan of care was updated with general surgical nurse practitioner Sheryl Westbrook.
[2017-12-15] MEDS: LACTOBACILLUS ACIDOPH & BULGAR 1 EACH PACKET PO SCH ×2 (12:25→20:28)
[2017-12-15] MEDS: TOPIRAMATE 100 MG TAB PO SCH ×2 (12:26→20:28)
[2017-12-15] MEDS: LORATADINE 10 MG TAB PO SCH (12:26)
[2017-12-15] MEDS: buPROPion XL 300 MG TAB.ER.24H PO SCH (12:26)
--- NOTE | 2017-12-15 12:28 | CT ---
EXAMINATION TYPE: CT angio abdomen pelvis DATE OF EXAM: 12/15/2017 HISTORY: RUQ pain, possible blood clot CT DLP: 242.5mGycm Automated Exposure Control for Dose Reduction was Utilized. CONTRAST: CT scan of the abdomen and pelvis is performed with IV Contrast, patient injected with 100 mL of Omni paque 350. COMPARISON: 12/12/2017 FINDINGS: LUNG BASES: New right basilar patchy opacity is seen in comparison to the prior of 12/12/2017. There i s associated pleural thickening adjacent to this opacity. LIVER/GB: No significant abnormality is appreciated. No intrahepatic biliary ductal dilatation. Vicar ious excretion of contrast is seen within the gallbladder. PANCREAS: No significant abnormality is seen. No pancreatic ductal dilatation. SPLEEN: No significant abnormality is seen. No splenomegaly ADRENALS: No nodularity or thickening. KIDNEYS: Kidneys enhance symmetrically without hydronephrosis. BOWEL: Appendix is air-filled and within normal limits. Scant amount of free fluid is seen within the pelvis, likely physiologic. Bowel is nondilated. Moderate amount retained colonic stool is noted. Th ere is no evidence of bowel wall thickening or pneumatosis coli. No portal venous gas is seen. UTERUS/ADNEXA: Uterus appears surgically absent. LYMPH NODES: No greater than 1cm abdominal or pelvic lymph nodes are appreciated. OSSEOUS STRUCTURES: Osseous structures appear intact. VASCULATURE: The celiac axis, SMA, and DALLAS are patent. No evidence of occlusion or aneurysmal outpouc mayda. No focal stenosis. Abdominal aorta is within normal limits of caliber without aneurysmal dilata tion. IMPRESSION: 1. New right lower lobe airspace disease with associated pleural thickening that could represent atel ectasis or pneumonia in the appropriate clinical setting. 2. No evidence of focal stenosis, occlusion or thrombus within the aorta, superior mesenteric artery, celiac axis, or inferior mesenteric artery. No radiographic sequela of bowel ischemia.
--- NOTE | 2017-12-15 12:57 | P.PN ---
Subjective Progress Note Date: 12/15/17 47-year-old female being reevaluated at the request of the attending for right upper quadrant abdominal pain. Patient had undergone an EGD today by GI service as part of the eval and workup for the epigastric and right upper quadrant pain. Findings showed a small hiatal hernia. Minimal antral gastritis. Patient's diet has been advanced. Patient was placed on a PPI protonix. continues to report having right upper quadrant abdominal pain states the pain is unchanged Dr. Gomez did see patient on December 14. Ultrasound of the gallbladder was negative for gallstones. There was no surgical intervention planned at that time. At that time the Bactrim that the patient was taking for bronchitis was felt to be the etiology for her pancreatitis. At that time Dr. Gomez did sign off requesting to be reevaluated as needed on admission the lipase was elevated 786. This morning is down to 229. AST and ALT are not elevated alk phos not elevated as mentioned patient continues to report having right upper quadrant pain. The chief complaint this morning is a migraine headache which patient states has resolved patient appears in no acute distress the attending is requesting a CT angiogram secondary to persistent abdominal pain and patient's history of blood clots and multiple other abdominal surgeries. The CT angiogram of the abdomen pelvis the computerized report was reviewed there was no evidence of bowel wall thickening pancreas was normal the liver and gallbladder no acute abnormality. There was no evidence of an occlusion or thrombus within the aorta or the inferior superior mesenteric arteries. Did show right lower lobe airspace disease with associated pleural thickening that could represent atelectasis or pneumonia in the appropriate clinical setting Objective - Vital Signs Vital signs: Vital Signs Temp 98.1 F 12/15/17 08:01 Pulse 94 12/15/17 09:45 Resp 16 12/15/17 08:01 BP 125/76 12/15/17 09:45 Pulse Ox 97 12/15/17 08:01 Intake & Output 12/14/17 12/15/17 12/15/17 18:59 06:59 18:59 Intake Total 1999 200 Balance 1999 200 Weight 61.689 kg Intake: IV 200 Intake, IV Titration 2000 Amount Lactated Ringers 1,000 ml 2000 @ 125 mls/hr IV .Q8H HAYDEE Rx#:[id number] Other: Voiding Method Toilet Toilet # Voids 3 3 - Exam Physical exam Abdomen patient points to the right upper quadrant as to the reference point where the discomfort is. States it radiates to the right upper quadrant soft flat no surgical scars noted bowel tones present no nausea no vomiting no facial grimacing with palpitation to the abdominal wall nondistended mild tenderness noted - Labs CBC & Chem 7: 12/15/17 06:56 12/15/17 06:56 Labs: Abnormal Lab Results - Last 24 Hours (Table) 12/15/17 12/15/17 Range/Units 06:56 11:02 Chloride 111 H (98-107) mmol/L BUN 4 L (7-17) mg/dL Plasma Lactic Acid Ronan <0.5 L (0.7-2.0) mmol/L Total Protein 5.8 L (6.3-8.2) g/dL Microbiology - Last 24 Hours (Table) 12/12/17 22:15 Urine Culture - Final Urine,Clean Catch Assessment and Plan Assessment: Impression History of Von Willebrand's disorder A recent treatment with Bactrim for bronchitis Present on admission elevated lipase amylase due to acute pancreatitis suspect viral History of esophageal reflux disease Plan Defer to the attending for further recommendations to address medical issues as they arise No evidence of an acute surgical abdomen at this time Pain control diet IV fluid for hydration DVT and GI prophylaxi The above impression and plan of care have been discussed and directed by signing physician. Sheryl Westbrook nurse practitioner acting as scribe for signing physician.
[2017-12-15 15:24] VITALS: BP 105/64; PULSE 76; RESP 15; TEMP 97.6
[2017-12-15] MEDS ORDERED: SUMAtriptan SUCCINATE 50 MG TAB PO STA (16:30)
--- NOTE | 2017-12-15 20:13 | NM ---
EXAMINATION TYPE: NM hepatobiliary w CCK DATE OF EXAM: 12/15/2017 COMPARISON: NONE HISTORY: Right upper quadrant pain TECHNIQUE: After the intravenous administration of 5.23 mCi Tc 99m Mebrofenin hepatobiliary scintigra phy is performed. Immediate images post injection. FINDINGS: There is satisfactory initial accumulation of tracer by the liver. The gallbladder is visualized wit hin 4 minutes. The small bowel activity is noted within 20 minutes. At one hour CCK was administere d, patient was injected with 1.23 mcg of Kinevac, and gallbladder ejection fraction is calculated at 66 %, in the normal range. Therefore there is no scintigraphic evidence of cystic or common bile siva t obstruction to suggest acute cholecystitis or gallbladder dyskinesia. IMPRESSION: Exam is within normal limits.
[2017-12-15] MEDS: MONTELUKAST 10 MG TAB PO SCH (20:28)
--- NOTE | 2017-12-20 00:38 | DS ---
DISCHARGE SUMMARY DATE OF ADMISSION: 12/12/2017 DATE OF DISCHARGE: 12/15/2017 FINAL DIAGNOSES: 1. Acute pancreatitis, likely viral cause. 2. Gastroesophageal reflux disease. 3. Von Willebrand's disorder. 4. Chronic lumbar arthritis. HOSPITAL COURSE: This patient was recovering from upper respiratory tract what looked like viral infection. Presented with acute abdominal pain, found to have acute pancreatitis. The patient's number came back to normal. On the day of discharge abdominal examination was benign. The patient is still having some pain, hence we did a CT angio of the abdomen that came back to be negative. The patient's CT scan of the abdomen otherwise and the patient's ultrasound was all negative. Earlier in the day, I had spoken to Breana from GI and hence we decided to rule out any bowel angina because of prior history of clots in the belly she described. Even the angiogram came back negative. Dr. Mixon saw the patient on the last day and okayed the patient to be discharged. HIDA scan came back to be negative too. The patient was told to keep on a light diet and progress slowly. The patient is afebrile. Normal white count. Clinically found to be doing rather well. On examination lungs are clear. CARDIOVASCULAR: First and second sounds normal. ABDOMEN: Soft, nontender. CONSULTATIONS: 1. Dr. Gomez/Dr. Mixon from General surgery. 2. Dr. Wilfrido Phillips from GI. The patient did also have an EGD that showed some minimal gastritis. Discussion and discharge planning more than 35 minutes. DISCHARGE MEDICATIONS: 1. Calcium 600 mg p.o. b.i.d. 2. Vitamin D3 1000 units p.o. daily. 3. Vivelle dot 0.05 mg 1 patch on Sundays and Monday. 4. Acidophilus 1 tab p.o. b.i.d. 5. Claritin 10 mg p.o. daily. 6. Myrbetriq 25 mg p.o. daily. 7. Singulair 20 mg q.h.s. 8. Maxalt 5 mg daily p.r.n. 9. Topamax 100 mg p.o. b.i.d. 10.Ambien 10 mg p.o. q.h.s. 11.Wellbutrin XL 300 mg p.o. daily. 12.Klonopin 1 mg p.o. t.i.d. p.r.n. 13.Glucophage XR 500 mg p.o. b.i.d. 14.Prilosec 20 mg p.o. with breakfast. Follow up with Dr. Mixon on 12/21/2017, Dr. Domenico Campa on 12/20/[address] Wilfrido Phillips on 01/31/2018. Diet full liquid/soft bland as tolerated. MMODL / IJN: [id number] /
== END 2017-12-15 21:50 | disposition home or self-care (01) | DRG 439 ==
LOC: EC 21:07 → 5MS5E 23:23 → 3SUR 12-13 14:42
PROVIDERS: ADMIT Hospitalist; ATTEND Hospitalist
PROC: 0DB78ZX Excision of Stomach, Pylorus, Via Natural or Artificial Opening Endoscopic, Diagnostic (ICD-10-PCS; 2017-12-15)
PROC: 0DB58ZX Excision of Esophagus, Via Natural or Artificial Opening Endoscopic, Diagnostic (ICD-10-PCS; 2017-12-15)
PROC: 0DB98ZX Excision of Duodenum, Via Natural or Artificial Opening Endoscopic, Diagnostic (ICD-10-PCS; principal; 2017-12-15 15:20)
DX: K85.30 Drug induced acute pancreatitis without necrosis or infection (principal); D68.0 Von Willebrand disease; T37.0X5A Adverse effect of sulfonamides, initial encounter; K21.9 Gastro-esophageal reflux disease without esophagitis; K29.70 Gastritis, unspecified, without bleeding; K44.9 Diaphragmatic hernia without obstruction or gangrene; E11.9 Type 2 diabetes mellitus without complications; M47.816 Spondylosis without myelopathy or radiculopathy, lumbar region; H93.19 Tinnitus, unspecified ear; M19.91 Primary osteoarthritis, unspecified site; G43.909 Migraine, unspecified, not intractable, without status migrainosus; Z79.84 Long term (current) use of oral hypoglycemic drugs; Z79.899 Other long term (current) drug therapy; Z90.710 Acquired absence of both cervix and uterus; Z86.718 Personal history of other venous thrombosis and embolism; Z88.1 Allergy status to other antibiotic agents; Z88.0 Allergy status to penicillin; Z88.8 Allergy status to other drugs, medicaments and biological substances
CPT/HCPCS: 36415; 43239; 74174; 74177; 76705; 78227; 80053; 81001; 81025; 82150; 83605; 83690; 84478; 84484; 85025; 85610; 86140; 87086; 88305; 96361; 96374; 96375; 96376; 99285

== ENCOUNTER → 2018-01-01 | Outpatient (CLI) | payer BC ==
[2018-01-01 11:19] LABS: Blood Urea Nitrogen 13 mg/dL (7-17)
--- NOTE | 2018-01-01 12:01 | CT ---
EXAMINATION TYPE: CT angio chest DATE OF EXAM: 01/01/2018 COMPARISON: NONE HISTORY: Severe shortness of breath CT DLP: 136.1 mGycm. Automated Exposure Control for Dose Reduction was Utilized. CONTRAST: CTA scan of the thorax is performed with IV Contrast, patient injected with 100 mL of Isovue M300, pu lmonary embolism protocol. MIP Images are created on CT scanner and reviewed. FINDINGS: LUNGS: Mild centrilobular emphysema is present. The lungs are grossly clear, there is no concerning p arenchymal mass or nodule identified. There is no pleural effusion or pneumothorax seen. The trach eobronchial tree is patent. MEDIASTINUM: There is satisfactory enhancement of the pulmonary artery and its branches, there is no CT evidence for pulmonary embolism. There are no greater than 1 cm hilar or mediastinal lymph nodes. No cardiomegaly or pericardial effusion is seen. OTHER: No additional significant abnormality is seen. IMPRESSION: 1. No evidence of pulmonary embolus. 2. No focal consolidation, pleural effusion or pneumothorax. 3. Mild centrilobular pulmonary emphysema.
== END | disposition home or self-care (01) ==
LOC: RADCTMAIN 10:49
PROVIDERS: ATTEND Internal Medicine
DX: J43.2 Centrilobular emphysema (principal); E11.9 Type 2 diabetes mellitus without complications
CPT/HCPCS: 82565; 84520; 71275; 36415; Q9967

== ENCOUNTER → 2018-01-19 | Outpatient (CLI) | payer BC ==
--- NOTE | 2018-01-19 17:30 | ECHOF ---
Referral Reason:R00.2 Palpitations MEASUREMENTS -------- HEIGHT: 165.1 cm WEIGHT: 61.7 kg BP: RVIDd: 1.7 cm (< 3.3) IVSd: 0.9 cm (0.6 - 1.1) LVIDd: 3.3 cm (3.9 - 5.3) LVPWd: 1.0 cm (0.6 - 1.1) IVSs: 1.2 cm LVIDs: 2.6 cm LVPWs: 1.2 cm LAESV Index (A-L): 13.31 ml/m Ao Diam: 2.9 cm (2.0 - 3.7) AV Cusp: 1.7 cm (1.5 - 2.6) LA Diam: 1.7 cm (2.7 - 3.8) MV EXCURSION: 15.358 mm (> 18.000) MV EF SLOPE: 103 mm/s (70 - 150) EPSS: 0.4 cm MV E Michael: 0.62 m/s MV DecT: 270 ms MV A Michael: 0.51 m/s MV E/A Ratio: 1.21 RAP: 5.00 mmHg RVSP: 20.89 mmHg FINDINGS -------- Sinus rhythm. This was a technically adequate study. The left ventricular size is normal. Left ventricular wall thickness is normal. Overall left vent ricular systolic function is normal with, an EF between 55 - 60 %. The right ventricle is normal in size and function. Normal LA size by volume 22+/-6 ml/m2. The right atrium is normal in size. The aortic valve is trileaflet, and appears structurally normal. No aortic stenosis or regurgitation. The mitral valve leaflets are mildly thickened. There is trace to mild mitral regurgitation. Trace tricuspid regurgitation present. Right ventricular systolic pressure is normal at < 35 mmHg. There is no evidence of pulmonary hypertension. Trace/mild (physiologic) pulmonic regurgitation. The aortic root size is normal. Normal inferior vena cava with normal inspiratory collapse consistent with estimated right atrial pre ssure of 5 mmHg. There is no pericardial effusion. CONCLUSIONS -------- 1. Sinus rhythm. 2. This was a technically adequate study. 3. The left ventricular size is normal. 4. Left ventricular wall thickness is normal. 5. Overall left ventricular systolic function is normal with, an EF between 55 - 60 %. 6. Normal LA size by volume 22+/-6 ml/m2. 7. The aortic valve is trileaflet, and appears structurally normal. No aortic stenosis or regurgitati on. 8. The mitral valve leaflets are mildly thickened. 9. There is trace to mild mitral regurgitation. 10. Trace tricuspid regurgitation present. 11. Right ventricular systolic pressure is normal at < 35 mmHg. 12. There is no evidence of pulmonary hypertension. 13. Trace/mild (physiologic) pulmonic regurgitation. 14. The aortic root size is normal. 15. There is no pericardial effusion. [employer]ING MACHINE FEEDER: Jasiel Morris RDCS
== END ==
LOC: RADECHMAIN 15:35
PROVIDERS: ATTEND Internal Medicine
DX: I08.1 Rheumatic disorders of both mitral and tricuspid valves (principal)
CPT/HCPCS: 93306

== ENCOUNTER → 2018-03-12 | Outpatient (CLI) | payer BC ==
--- NOTE | 2018-03-12 23:19 | CT ---
EXAMINATION TYPE: CT sinus wo con DATE OF EXAM: 03/12/2018 COMPARISON: CT sinuses July 25, 2016 HISTORY: ACUTE SINUSITIS per order. Facial pain and headaches CT DLP: 654.8 mGycm. Automated Exposure Control for Dose Reduction was Utilized. TECHNIQUE: CT scan of the sinuses is performed without contrast, axial images are obtained, coronal r eformatted images are also reviewed. FINDINGS: The paranasal sinuses including the frontal, ethmoid, sphenoid, and maxillary sinuses bila terally are well-aerated without abnormal opacification. The ostiomeatal complex is patent bilateral ly on the coronal images. Nasal septum remains slightly deviated to right of midline. Visualized portion of mastoid air cells show no abnormal opacification. Middle ear prosthesis on the left is felt to redemonstrated axial image 27. The globes are intact bilaterally. IMPRESSION: The sinuses are clear and the ostiomeatal complex is patent bilaterally. No significant change from prior.
== END ==
LOC: RADCTMAIN 18:04
PROVIDERS: ATTEND Family Medicine
DX: J01.90 Acute sinusitis, unspecified (principal)
CPT/HCPCS: 70486

== ENCOUNTER → 2018-06-07 | Outpatient (CLI) | payer BC ==
--- NOTE | 2018-06-07 13:58 | CT ---
EXAMINATION TYPE: CT angio chest DATE OF EXAM: 06/07/2018 COMPARISON: 01/01/2018 HISTORY: 47-year-old female with pleurisy, Bilateral pneumonia TECHNIQUE: Contiguous axial scanning of the chest performed with IV Contrast, patient injected with 1 00 mL of Isovue 370. Coronal/sagittal MIP reconstructions performed. CT DLP: 404 mGycm Automated exposure control for dose reduction was used. FINDINGS: Heart normal size without pericardial effusion. Aorta normal caliber with conventional arch vessel branching anatomy. Satisfactory opacification of the pulmonary arterial system without evidence for pulmonary embolus. There is new mediastinal and hilar lymphadenopathy as well as a lateral bronchial lymphadenopathy. Pr ecarinal lymph node measures 1.1 cm, subcarinal lymph node measures 1.4 cm, left hilar lymph node joey sures 1.4 cm, right hilar lymph node measures 1.6 cm, right bronchial lymph node measures 1.2 cm. Mild diffuse bronchial wall thickening. Numerous new bilateral pulmonary nodules are present measurin g 8 mm and smaller (refer to the right midlung anteriorly axial image 69 for the largest nodule). In retrospect, a few of these showed punctate densities on 01/01/2018, for example, left upper lobe measur ing 6 cm currently versus 4 mm, previously, axial image 66. Motion artifact visualized upper abdomen. Bones: No osseous destructive process. Mild degenerative disc disease throughout. IMPRESSION: 1. NO EVIDENCE FOR PULMONARY EMBOLUS. 2. NEW BORDERLINE TO MILDLY ENLARGED MEDIASTINAL AND HILAR LYMPHADENOPATHY. ADDITIONAL ENLARGED BRONC HIAL LYMPHADENOPATHY IS NOTED WELL NUMEROUS BILATERAL NEW PULMONARY NODULES MEASURING UP TO 8 M M. IF INFECTIOUS SIGNS/SYMPTOMS, CORRELATE FOR ATYPICAL MYCOBACTERIAL OR FUNGAL INFECTIONS. 3 MONTH F OLLOW-UP EXAM CAN BE PERFORMED. POSSIBILITY OF METASTATIC DISEASE IS NOT EXCLUDED AT THIS TIME.
== END | disposition home or self-care (01) ==
LOC: RADCTMAIN 10:10
PROVIDERS: ATTEND Internal Medicine
DX: R91.8 Other nonspecific abnormal finding of lung field (principal); R59.0 Localized enlarged lymph nodes
CPT/HCPCS: 82565; 84520; 71275; 36415; Q9967

== ENCOUNTER → 2018-09-11 | Outpatient (CLI) | payer BC ==
[2018-09-11 12:38] LABS: Blood Urea Nitrogen 25 mg/dL (7-17)
--- NOTE | 2018-09-11 16:04 | CT ---
EXAMINATION TYPE: CT chest w con DATE OF EXAM: 09/11/2018 COMPARISON: 06/07/2018 HISTORY: Enlarged lymph nodes, pleurisy CT DLP: 448 mGycm, Automated exposure control for dose reduction was used. CONTRAST: Performed injected with 100 mL of Isovue 300. TECHNIQUE: Axial images were obtained at 5 mm thick sections. Reconstructed images are reviewed on [place] computer in the coronal plane. FINDINGS: Portion of the thyroid visualized is normal. There are several small nodules present. This would include a 0.3 cm nodule along the periphery of th e posterior medial right apex. Series 4 image 12. A 0.2 cm nodule within the left anterior midlung. S eries 4 image 22. A 0.3 cm nodule within the right anterior upper lung field. Series 4 image 22. A 0. 4 cm Nodular density in the periphery of the right midlung. Series 4 image 26. A 0.6 cm nodule within the anterior right midlung. Series 4 image 27. A 0.6 cm oval nodule within the lingula. Series 4 sang ge 28. A 0.3 cm nodule within the right midlung. Series 4 image 36. A nodular density at the right di aphragm measuring 0.4 cm. Series 4 image 46. Nodules appear present previously. There is an enlarged subcarinal lymph node measuring 1.7 cm in transverse dimension, previously measu ring 1.8 cm. Smaller subcentimeter pretracheal and peribronchial lymphadenopathy is evident. There is some right hilar adenopathy which is not enlarged but somewhat prominent. This is diminished from Se ptember 2018 The ascending aorta diameter at the level of the main pulmonary artery is 2.4 cm. The main pulmonary artery diameter at the bifurcation is 2.[address] sections are obtained through the upper abdomen. Abdomen is essentially unremarkable. IMPRESSIONS: 1. There remains an enlarged subcarinal lymph node currently measuring 1.7 cm. Remaining adenopathy i ncluding the prominent right hilar adenopathy is diminished in size over the interval and is not enla rged by CT criteria. Continued monitoring is recommended. 2. Stable multiple bilateral small subcentimeter nodules discussed above.
== END | disposition home or self-care (01) ==
LOC: RADCTMAIN 12:04
PROVIDERS: ATTEND Internal Medicine
DX: R91.8 Other nonspecific abnormal finding of lung field (principal); R09.1 Pleurisy
CPT/HCPCS: 82565; 84520; 71260; 36415; Q9967

== ENCOUNTER → 2020-05-19 | Outpatient (CLI) | payer BC ==
--- NOTE | 2020-05-20 15:46 | EEG ---
ELECTROENCEPHALOGRAM REPORT DATE OF SERVICE: 05/19/2020 PREAMBLE: This is a 49-year-old female who has been having episodes of as if shocking waves of electricity flow through her body. The patient has a history of electrocution about 15 years ago when she was cleaning the gutters and fell off the ladder into power lines. She was treated in the hospital. CURRENT MEDICATIONS: Metformin, Adderall, calcium, probiotic, vitamin D, Ambien, loratadine, Singulair. EEG FINDINGS: This is a 21-channel routine EEG recorded in a patient utilizing 10-20 international system with referential and bipolar montages. The patient appears to be drowsy during most of the study with appearance of bilaterally symmetric theta frequency rhythm in 6- 7 hertz. Some low-voltage fast frequency beta activity was also seen frequently intermixed during the study. Frequent wicket spikes were seen during this study, involving left or right temporal region or sometimes bisynchronous. Photic driving response was seen. Stage I sleep was seen. Deeper stages of sleep were not seen. No definitive epileptiform activity was seen. IMPRESSION: This is probably a normal EEG during drowsiness. Awake pattern not seen during the study. If your suspicion for seizures is high, consider prolonged or sleep- deprived EEG. No definitive epileptiform activity was seen. MMODL / IJN: [id number] / FRANCO
== END | disposition home or self-care (01) ==
LOC: NEUROMAIN 07:53
PROVIDERS: ATTEND Internal Medicine
DX: R55 Syncope and collapse (principal)
CPT/HCPCS: 95816

== ENCOUNTER → 2021-02-02 | Outpatient (CLI) | payer BC ==
--- NOTE | 2021-02-02 08:32 | US ---
EXAMINATION TYPE: US groin LT DATE OF EXAM: 02/02/2021 COMPARISON: NONE CLINICAL HISTORY: K40.90Unilateral inguinal hernia,. Pt states left groin pain and lump x 5 days Left groin scanned in area of pt's concern- no evidence of inguinal hernia, probable lymph node= 0. 8 cm with increased vascularity IMPRESSION: 1. Oval hypoechoic areas within the left inguinal region may be lymph nodes. Follow-up can be perform ed as clinically indicated. 2. No suspicious ultrasound changes to suggest inguinal hernia.
== END | disposition home or self-care (01) ==
LOC: RADUSWWP 07:10
PROVIDERS: ATTEND Family Medicine
DX: R10.30 Lower abdominal pain, unspecified (principal)

== ENCOUNTER → 2022-04-12 | Outpatient (CLI) | payer BC ==
[2022-04-12 18:20] LABS: African American GFR (CKD) >90 (>60 ml/min/1.73 sqM); Blood Urea Nitrogen 15 mg/dL (7-17); Non-African American GFR(CKD) >90 (>60 ml/min/1.73 sqM)
--- NOTE | 2022-04-12 20:21 | CT ---
EXAMINATION TYPE: CT chest w con CT DLP: 469.60 mGycm, Automated exposure control for dose reduction was used. DATE OF EXAM: 04/12/2022 6:46 PM COMPARISON: CT abdomen pelvis 12/12/2017, CT chest 09/11/2018. CLINICAL INDICATION:Female, 51 years old with history of R59.0 LOCALIZED ENLARGED LYMPH NODES, hilar lymphadenopathy. Enlarged lymph nodes TECHNIQUE: Multiple axial images were obtained through the chest following the administration of 60 c c of Isovue 300. FINDINGS: LUNGS/ PLEURA: No evidence of focal consolidation, pneumothorax or pleural effusion. Scattered pulmon malena nodules seen on prior imaging and 2018 are no longer visualized. AIRWAY: Patent and unremarkable. HEART: Heart is mildly enlarged for size. MEDIASTINUM: Prior subcarinal lymph node which is enlarged and 2018 is no longer visualized. No enlar ged lymph nodes. VASCULATURE: No aortic aneurysm. MUSCULOSKELETAL: No acute osseous abnormalities SOFT TISSUES/LYMPH NODES: Unremarkable. LOWER NECK: No significant findings. UPPER ABDOMEN: No significant findings. IMPRESSION: No evidence for lymphadenopathy within the visualized exam. Resolution of prior mediastinal enlarged lymph nodes and pulmonary nodules seen on 09/11/2018 CT chest. No acute process.
== END | disposition home or self-care (01) ==
LOC: RADCTMAIN 17:37
PROVIDERS: ATTEND Family Medicine
DX: R91.8 Other nonspecific abnormal finding of lung field (principal)
CPT/HCPCS: 82565; 84520; 71260; 36415; Q9967

== ENCOUNTER → 2023-08-23 | Outpatient (CLI) | payer OTHER ==
--- NOTE | 2023-08-25 12:07 | MR ---
EXAMINATION TYPE: MR abdomen wo/w con DATE OF EXAM: 08/23/2023 6:41 PM CLINICAL INDICATION:Female, 53 years old with history of K86.89 DISEASE OF PANCREAS; PHH, Atrophy of the pancreas, stomach pain, hx of multiple abdomen surgeries. COMPARISON: CT scan abdomen from 04/12/2022, 12/15/2017.. TECHNIQUE: Multiplanar multi-sequence imaging was performed without contrast. Post contrast imaging was performed. Post IV contrast subtraction images were also submitted for review. IV Contrast: 8 cc Gadobutrol FINDINGS: LOWER CHEST: No gross irregularity. ABDOMEN Liver: No evidence for hepatic steatosis or cirrhosis. Gallbladder and Bile ducts: No evidence for ductal dilation, or biliary stricture or evidence of chol edocholithiasis. The gallbladder is within normal limits. Pancreas: No ductal dilation. No evidence for solid mass. Pancreatic parenchyma appears grossly withi n normal limits with mild fatty atrophy changes. Spleen: Normal for size. Adrenal glands: Unremarkable. Kidneys: No evidence for obstructive uropathy. No suspicious renal masses. Simple appearing left david l cyst. Indeterminate high T1 signal cysts on the right anterior aspect just above formation/hemorrha gic cyst. Stomach and Bowel: No evidence for bowel wall thickening or evidence for obstruction.. Peritoneum: No evidence of pneumoperitoneum or free fluid. Vasculature: No aortic aneurysm. Musculoskeletal: The osseous structures appear intact. Lymph Nodes: No gross evidence for lymphadenopathy. Abdominal wall: Fat-containing umbilical hernia. IMPRESSION: 1. Pancreatic parenchyma is grossly within normal limits or may be mild fatty atrophy changes. No s uspicious pancreatic mass. 2. No acute abdominal process or suspicious enhancement
== END | disposition home or self-care (01) ==
LOC: RADMRIMAIN 17:36
PROVIDERS: ATTEND Family Medicine
DX: K86.89 Other specified diseases of pancreas (principal); Z87.59 Personal history of other complications of pregnancy, childbirth and the puerperium
CPT/HCPCS: 74183; A9585

== ENCOUNTER → 2024-04-03 | Outpatient (CLI) | payer OTHER ==
--- NOTE | 2024-04-03 11:43 | FL ---
EXAMINATION TYPE: FL sniff test without CXR DATE OF EXAM: 04/03/2024 COMPARISON: NONE HISTORY: Shortness of breath TECHNIQUE: Fluoroscopy. FINDINGS: Fluoroscopic sniff exam is performed with normal inspiratory and expiratory motion of the bilateral hemidiaphragms. A 5 seconds of fluoroscopy and 1 submitted. IMPRESSION: Normal exam.
--- NOTE | 2024-04-03 12:28 | CT ---
EXAMINATION TYPE: CT chest w con CT DLP: 388.60 mGycm, Automated exposure control for dose reduction was used. DATE OF EXAM: 04/03/2024 10:38 AM COMPARISON: CT chest 04/12/2022, 09/11/2018 CLINICAL INDICATION:Female, 53 years old with history of R06.09 OTHER FORMS OF DYSPNEA; PHH, KORI, [employer] D TECHNIQUE: Multiple axial images were obtained through the chest following the administration of 100 cc of Isovue 300. . Coronal and sagittal reformats reviewed. FINDINGS: LUNGS/ PLEURA: No pleural effusion or pneumothorax. No focal consolidation. Minimal dependent right l ower lobe subsegmental atelectasis. Continued elevation of the right hemidiaphragm. Few stable pulmon malena nodules dating back to 2018 and considered benign. Example includes a right upper lobe groundglas s 4.5 mm pulmonary nodule (series 4, image 22). And a left upper lobe 2.4 mm pulmonary nodule (series 4, image 24). No new suspicious pulmonary nodules or masses. No emphysematous changes noted. AIRWAY: Patent and unremarkable.. HEART: Size within normal limits. No pericardial effusion. MEDIASTINUM: No gross evidence of adenopathy. VASCULATURE: No aortic aneurysm. MUSCULOSKELETAL: No acute osseous abnormalities. Mild multilevel degenerative disc disease. SOFT TISSUES/LYMPH NODES: Unremarkable. LOWER NECK: No significant findings. UPPER ABDOMEN: No significant findings. IMPRESSION: No acute thoracic process.
== END | disposition home or self-care (01) ==
LOC: RADCTMAIN 10:04
PROVIDERS: ATTEND Internal Medicine Critical Care Medicine
DX: R06.09 Other forms of dyspnea (principal); J44.9 Chronic obstructive pulmonary disease, unspecified
CPT/HCPCS: 82550; 76000; 71260; Q9967